=== PATIENT | female | born 1965 | race African-American/Black ===

== ENCOUNTER 2022-12-02 11:49 | Outpatient (REF) | payer MEDICAID, SELFPAY | END 2022-12-02 11:50 | disposition home or self-care (01) | LOC: HO.MAMMO 11:49 | PROVIDERS: Visit Provider Nurse Practitioner Family | DX: Z12.31 Encounter for screening mammogram for malignant neoplasm of breast (principal) | CPT/HCPCS: 77063; 77067 ==

== ENCOUNTER → 2022-12-02 12:15 | Outpatient (BNV) | payer MEDICAID, SELFPAY | PROVIDERS: Visit Provider Radiology Diagnostic Radiology | DX: Z12.31 Encounter for screening mammogram for malignant neoplasm of breast (principal) | CPT/HCPCS: 77063; 77067 ==

== ENCOUNTER 2024-01-25 18:00 | Outpatient (REF) | payer MEDICAID, SELFPAY ==
[2024-01-26 02:57] LABS: CT PCR NOT DETECTED (Not Detect.); NG PCR NOT DETECTED (Not Detect.)
[2024-01-26 11:10] LABS: Bacterial Vaginosis PCR NEGATIVE (Negative); Candida Group PCR DETECTED (Not Detect); Candida glab krusei PCR NOT DETECTED (Not Detect); Trichomonas vaginalis PCR NOT DETECTED (Not Detect)
== END 2024-01-25 18:01 | disposition home or self-care (01) ==
LOC: HO.HHCLNP 18:00
PROVIDERS: Visit Provider Emergency Medicine
DX: E11.69 Type 2 diabetes mellitus with other specified complication (principal); E66.9 Obesity, unspecified
CPT/HCPCS: 0352U; 87086; 87147; 87491; 87591

== ENCOUNTER 2024-04-19 15:45 | Outpatient (REF) | payer MEDICAID, SELFPAY ==
[2024-04-19 16:25] LABS: MANUAL DIFF FLAG NO
--- OUTSIDE RECORDS SUMMARY | 2024-04-19 16:28 | XMS_ITS | Encounter Summary ---
Author Organization [employer] Address [address] [facility] [address] [place] [address] Care Team Providers Care Assistant Professor Of Marine Biology Name Role Phone Amalia Pulido [facility] Primary Care Provider [phone] Reason for Visit * Reason Comments Pre-visit Planning Pre-visit planning - LVM Encounter Details Date Type Department Care Team ([facility] Contact Info) Description 04/06/2024 Patient Outreach [facility] MEDICINE [address] [place], [place] [id number] Amalia Pulido FNP [address] [place] [address] Pre-visit Planning (Pre-visit planning - LVM ) Social History Tobacco Use Types Packs/Day Years Used Date Smoking Tobacco: Former Cigarettes 1 20 0 09/24/2002 - 09/24/2022 Passive Smoke Exposure: Current Smokeless Tobacco: Never Comments:Quit smoking 3 Alcohol Use Standard Drinks/Week Comments Never 0 (1 standard drink = 0.6 oz pur e alcohol) Depression Answer Date Recorded Patient Health Questionnaire-9 Score 9 10/29/2022 Housing Stability Answer Date Recorded What is your housing situation today? I have yelitzaalda bruno 02/03/[address] you li ve. Do you have problems with any of the following? None of the above 02/03/2024 Food Insecurity Answer Date Recorded Within the past 12 months, y ou worried that your food would run out before you got money to buy more: Never True 02/03/2024 Within the past 12 months,th e food you bought just didn't last and you didn't have enough money to get more: Never True Transportation Answer Date Recorded In the past 12 months, has l ack of transportation kept you from medical appts, meetings, work or from getting things needed for daily living? No 02/03/2024 Utilities Answer Date Recorded In the past 12 months, has t he electric, gas, oil or water company threatened to shut off services in your home? No 02/03/2024 Depression Answer Date Recorded Patient Health Questionnaire-2 Score 4 10/29/2022 Internet Access Answer Date Recorded Internet Access Q1 Yes 02/03/2024 Internet Access Q2 Not on file 02/03/2024 Comments Unknown Sex and Gender Information Value Date Recorded Sex Assigned at Female 01/12/2022 10:17 AM EDT Legal Sex Female 10:17 AM EDT Gender Identity Female 01/12/2022 10:17 AM EDT Sexual Orientation Straight 01/12/2022 10 :17 AM EDT documented as of this encounter Progress Notes * Barbara Frazier - 04/06/2024 10:47 AM EST CEASAR Tiwari placed outbound call to patient to complete pre-visit planning. No answer at this time. Patient name and were not confirmed. CC left voicemail requesting return call. Direct contact information provided. documented in this encounter Plan of Treatment Not on file documented as of this encounter Visit Diagnoses Not on filedocumented in this encounter Additional Health Concerns Assessment Noted Time PHQ-9 Depression Total Score: 9 10/30/19 23 2:22 PM EDT documented as of this encounter Care Teams Assistant Professor Of Marine Biology Relationship Specialty Start Date End Date Amalia Pulido FNP [address] [place] [id number] PCP - General Family Medicine 01/25/24 documented as of this encounter
--- OUTSIDE RECORDS SUMMARY | 2024-04-19 16:28 | XMS_ITS | Encounter Summary ---
Author Organization [employer] Address [address] [place] [address] Care Team Providers Care Materials Engineering Technician Name Role Phone Amalia Pulido VETERINARY TOXICOLOGIST Primary Care Provider [phone] Encounter Details Date Type Department Care Team (Latest Contact Info) Description 04/19/2024 Travel Social History Tobacco Use Types Packs/Day Years [...] is your housing situation today? I have yelitza bruno 02/03/[address] you [...] AM EDT documented as of this encounter Plan of Treatment Not on file documented as of this encounter Visit Diagnoses Not on filedocumented in this encounter Additional Health Concerns Assessment Noted Time PHQ-9 Depression Total Score: 9 10/30/19 23 2:22 PM EDT documented as of this encounter Care Teams Materials Engineering Technician Relationship Specialty Start Date End Date Amalia Pulido FNP [address] [place] [id number] PCP - General Family Medicine 01/25/24 documented as of this encounter
--- OUTSIDE RECORDS SUMMARY | 2024-04-19 16:28 | XMS_ITS | Clinical Summary ---
Author Organization [employer] [facility] ity Address [address] [place] [address] Care Team Providers Care Agronomy Advisor Name Role Phone Unavailable Primary Care Provider Unavailabl e Social History Tobacco Use Types Packs/Day Years Used Date Smoking Tobacco: Never Assessed Sex and Gender Information Value Date Recorded Sex Assigned at Not on file Gender Identity Not on file Sexual Orientation Not on file Plan of Treatment Health Maintenance Due Date Last Done Comments Breast Cancer Screening 1965 DTaP,Tdap,and Td Vaccines (1 - Tdap) 02/13/1984 Hepatitis B Vaccines (1 of 3 - 19+ 3-dose series) 02/13/1984 Cervical Cancer Screening: P ap Smear 1986 Zoster Vaccines (1 of 2) 2015 COVID-19 Vaccine (1 - 2023-2 5 season) 2023 Influenza Vaccine (#1) 2023 RSV Immunization Patients 60 + Years Old (1 - 1-dose 75+ series) 02/13/2040 HIB Vaccines Aged Out No longer eligi ble based on patient's age to complete this topic HPV Vaccines Aged Out No longer eligi ble based on patient's age to complete this topic Hepatitis A Vaccines Aged Out No long er eligible based on patient's age to complete this topic IPV Vaccines Aged Out No longer eligi ble based on patient's age to complete this topic MMR Vaccines Aged Out No longer eligi ble based on patient's age to complete this topic Meningococcal ACWY Vaccine Aged Out N o longer eligible based on patient's age to complete this topic Pneumococcal Vaccine: Pediat rics (0 to 5 Years) and At-Risk Patients (6 to 64 Years) Aged Out No longer eligible b ased on patient's age to complete this topic RSV Immunization Patients Un beni 20 months Aged Out No longer eligible b ased on patient's age to complete this topic Varicella Vaccines Aged Out No longer eligible based on patient's age to complete this topic
--- OUTSIDE RECORDS SUMMARY | 2024-04-19 16:28 | XMS_ITS | Encounter Summary ---
Author Organization [employer] Address [address] [facility] [address] [place] [address] Care Team Providers Care Freight Car Repairer Name Role Phone Aziza Ramsey [facility] Primary Care Provider [phone] [facility] Primary Care Provider [phone] Amalia Pulido [facility] Primary Care Provider [phone] Reason for Visit * Reason Comments Med Refill Encounter Details Date Type Department Care Team ([facility] st Contact Info) Description 02/17/2023 Refill [facility] MEDICINE [address] [place], [place] [phone] Aziza Ramsey PROBATE CLERK [address] [place] [address] Primary osteoarthritis of both knees Social History Tobacco Use Types Packs/Day Years [...] is your housing situation today? I have housing today, but I am worried about losing housing in the future 12/29/[address] you li ve. Do you have problems with any of the following? None of the above 12/29/2022 Food Insecurity Answer Date Recorded Within the past 12 months, y ou worried that your food would run out before you got money to buy more: Never True 12/29/2022 Within the past 12 months,th e food you bought just didn't last and you didn't have enough money to get more: Never True Transportation Answer Date Recorded In the past 12 months, has l ack of transportation kept you from medical appts, meetings, work or from getting things needed for daily living? No 12/29/2022 Utilities Answer Date Recorded In the past 12 months, has t he electric, gas, oil or water company threatened to shut off services in your home? No 12/29/2022 Depression Answer Date Recorded Patient Health Questionnaire-2 Score 4 10/29/2022 Comments Unknown Sex and Gender Information Value Date Recorded Sex Assigned at Female 01/12/2022 10:17 AM EDT Legal Sex Female 10:17 AM EDT Gender Identity Female 01/12/2022 10:17 AM EDT Sexual Orientation Straight 01/12/2022 10 :17 AM EDT documented as of this encounter Plan of Treatment Not on file documented as of this encounter Visit Diagnoses Diagnosis Primary osteoarthritis of both knees documented in this encounter Additional Health Concerns Assessment Noted Time PHQ-9 Depression Total Score: 9 10/30/19 23 2:22 PM EDT documented as of this encounter Care Teams Freight Car Repairer Relationship Specialty Start Date End Date Aziza Ramsey FNP [address] [place] [address] PCP - General Family Medicine 09/09/22 [facility] [address] [place] [address] PCP - General Family Medicine 11/16/23 01/24/24 Amalia Pulido FNP [address] [place] [address] PCP - General Family Medicine 01/25/24 documented as of this encounter
--- OUTSIDE RECORDS SUMMARY | 2024-04-19 16:28 | XMS_ITS | Encounter Summary ---
Author Organization [employer] Address [address] [facility] [address] [place] [address] Care Team Providers Care Ammonia Box Operator Name Role Phone Amalia Pulido REMEDIATION TECHNICIAN Primary Care Provider [phone] Reason for Visit * Reason Onset Date Comments Chart Prep 04/13/2024 Encounter Details Date Type Department Care Team ([facility] st Contact Info) Description 04/13/2024 Telephone [facility] MEDICINE [address] [place] [address] Viki Smalls [place] Chart Prep Social History Tobacco Use Types Packs/Day Years [...] the past 12 months, has t he [employer], gas, oil or water [employer] threatened to shut off services in your [...] AM EDT documented as of this encounter Miscellaneous Notes * Telephone Encounter - Viki Smalls [place] - 04/13/2024 2:02 PM EST Chart Prep Labs: not done Images: done Vaccines due: Covid Due, Hep B Due, PCV20 Due, Flu Due, and Shingles in pharmacy Due Referrals: Pharmacy Screenings: Colonoscopy , Eye Exam, Foot Exam, HIV screening, and Urine protein, Hep C, Lung cancerscreening, Cervical cancer Overdue care gaps: A1C, Glucose, Sbirt, PHQ-9, and Oral Health documented in this encounter Plan of Treatment Not on file documented as of this encounter Visit Diagnoses Not on filedocumented in this encounter Additional Health Concerns Assessment Noted Time PHQ-9 Depression Total Score: 9 10/30/19 23 2:22 PM EDT documented as of this encounter Care Teams Ammonia Box Operator Relationship Specialty Start Date End Date Amalia Pulido FNP [address] [place] [id number] PCP - General Family Medicine 01/25/24 documented as of this encounter
--- OUTSIDE RECORDS SUMMARY | 2024-04-19 16:28 | XMS_ITS | Encounter Summary ---
Author Organization [employer] Address [address] [facility] [address] [place] [address] Care Team Providers Care Floating Labor Gang Supervisor Name Role Phone Aziza Ramsey ADULT EDUCATION TEACHER Primary Care Provider [phone] Odalis LinP Primary Care Provider [phone] Amalia Pulido [facility] Primary Care Provider [phone] Encounter Details Date Type Department Care Team (Late st Contact Info) Description 10/15/2022 Orders Only [facility] MEDICINE [address] [place] [address] Aziza Ramsey FNP [address] [place] [address] Social History Tobacco Use Types Packs/Day Years Used Date Smoking Tobacco: Some Days Cigarettes Passive Smoke Exposure: Current Smokeless Tobacco: Never Alcohol Use Standard Drinks/Week Comments Not Currently 0 (1 standard drink = 0.6 oz pur e alcohol) Comments Unknown Sex and Gender Information Value Date Recorded Sex Assigned at Female 01/12/2022 10:17 AM EDT Legal Sex Female 10:17 AM EDT Gender Identity Female 01/12/2022 10:17 AM EDT Sexual Orientation Straight 01/12/2022 10 :17 AM EDT documented as of this encounter Plan of Treatment Not on file documented as of this encounter Visit Diagnoses Not on filedocumented in this encounter Care Teams Floating Labor Gang Supervisor Relationship Specialty Start Date End Date Aziza Ramsey FNP [address] [place] [address] PCP - General Family Medicine 09/09/22 11/15/23 Odalis Lin FNP [address] [place] [address] PCP - General Family Medicine 11/16/23 01/24/24 Amalia Pulido FNP [address] [place] [address] PCP - General Family Medicine 01/25/24 documented as of this encounter
--- OUTSIDE RECORDS SUMMARY | 2024-04-19 16:28 | XMS_ITS | Clinical Summary ---
Author Organization [employer] Address [address] [facility] [address] [place] [address] Care Team Providers Care Asset Accountant Name Role Phone Amalia Pulido [facility] Primary Care Provider [phone] Allergies No known active allergies Medications albuterol (2.5 MG/3ML) 0.083% nebulizer solution Every 4-6 hours as needed for wheezing 75 mL 11 09/10/19 23 Active atorvastatin (Lipitor) 40 MG tablet Take 1 tablet (40 mg) by mouth every 30 (thirty) days. 90 tablet 1 09/10/19 23 Active fluticasone (Flovent HFA) 110 MCG/ACT inhaler INHALE 1 PUFF TWICE DAILY 36 g 09/10/19 23 Active Alcohol Swabs (B-D SINGLE USE SWABS REGULAR) pads USE DIRECTED TWICE DAILY 1 each 11 09/10/19 23 Active sertraline (Zoloft) 50 MG tablet Take 50 mg by mouth in the morning. 02/05/20 22 Active triamcinolone (Kenalog) 0.1 % creamIndicatio ns:Vesicular eczema Apply topically if needed in the morning and at bedtime (pain and swelling). 30 g 2 10/30/19 23 Active omeprazole (PriLOSEC) [address] capsule TAKE 1 CAPSULE BY MOUTH EVERY DAY BEFORE A MEAL NEEDED FOR REFLUX 90 capsule 1 08/02/19 24 Active Blood Pressure kit 1 each 2 times daily. 1 kit 01/25/20 24 025 Active glucose blood (FREESTYLE LITE) test strip 1 each by Other route every 12 (twelve) hours. 100 each 2 01/25/20 24 Active FreeStyle lancets 1 each by Other route 2 times daily. TEST BLOOD SUGAR TWICE A DAY 100 each 2 01/25/20 24 Active Alcohol Swabs (Alcohol Prep) pads 1 each 2 times daily. 100 each 01/25/20 24 Active albuterol 108 (90 Base) MCG/ACT inhalerIndicat ions:Mild persistent asthma, unspecified whether complicated INHALE 2 PUFFS EVERY 6 HOURS NEEDED FOR WHEEZING 18 g 1 02/29/20 24 Active Dulaglutide (Trulicity) 0.75 MG/0.5ML solution auto-injector Inject 0.75 mg under the skin 1 (one) time per week. 0.5 mL 1 04/19/19 25 Active glipiZIDE XL (Glucotrol XL) 5 MG 24 hr tablet Take 1 tablet (5 mg) by mouth Once per day. Do not crush, chew, or split. 30 tablet 11 04/19/19 25 026 Active insulin glargine (Lantus SoloStar) 100 UNIT/ML penIndications :Type 2 diabetes mellitus with hyperglycemia, with long-term current use of insulin ([facility]) Inject 16 Units under the skin Once daily. 5 mL 2 04/19/19 25 026 Active lisinopril 20 MG tabletIndicati ons:Hypertensi on associated with diabetes (CMS/HCC) (CMS/[facility]) Take 1 tablet (20 mg) by mouth Once daily. 90 tablet 04/19/19 25 Active pen needle 32G x 4 mm miscIndication s:Type 2 diabetes mellitus with hyperglycemia, with long-term current use of insulin ([facility]) Use as instructed 100 each 2 04/19/19 25 Active meloxicam (Mobic) 7.5 MG tabletIndicati ons:Arthralgia , unspecified joint 1 tab by mouth with food once or twice daily 60 tablet 04/19/19 25 Active lisinopril 10 MG tablet TAKE 1 TABLET(10 MG) BY MOUTH IN THE MORNING 90 tablet 1 05/28/19 24 025 Discontinued(Re order (will not trigger notification to Pharmacy)) naproxen (Naprosyn) 500 MG tablet TAKE 1 TABLET BY MOUTH TWICE DAILY WITH FOOD FOR MODERATE PAIN 60 tablet 10/18/19 24 025 Discontinued(Th erapy completed) naproxen (Naprosyn) 250 MG tablet Take 1 tablet (250 mg) by mouth if needed in the morning and at bedtime for mild pain. Prn pain and/or fever 30 tablet 01/25/20 24 025 Discontinued(Th erapy completed) insulin glargine (Lantus SoloStar) 100 UNIT/ML pen Inject 15 Units under the skin at bedtime. 3 mL 2 01/25/20 24 025 Discontinued(Re order (will not trigger notification to Pharmacy)) pen needle 32G x 4 mm misc Use as instructed 100 each 2 01/25/20 24 025 Discontinued(Re order (will not trigger notification to Pharmacy)) Active Problems Problem Noted Date Diagnosed Date Tobacco use 09/09/2022 Vesicular eczema 04/01/2022 Depressive disorder 10/20/2020 Insomnia 08/24/2018 Mild persistent asthma 06/03/2018 Carpal tunnel syndrome 06/03/2018 Impingement syndrome of left shoulder region Osteoarthritis of left acromioclavicular joint 0 06/01/2018 Hip pain 03/31/2018 Essential hypertension 03/31/2018 Mixed incontinence 10/21/2017 Primary osteoarthritis of both knees 06/19/2016 Onychomycosis of multiple to enails with type 2 diabetes mellitus ([facility]/HCC) 03/27/2016 Type 2 diabetes mellitus with obesity ([facility]) 03/27/2016 Encounters Date Type Department Care Team Description 04/19/2024 2:00 PM EST Office Visit [facility] [address] [place] [phone] Amalia Pulido FNP Well adult health check (Primary Dx); Type 2 diabetes mellitus with obesity ([facility]/HCC) ([facility]); Type 2 diabetes mellitus with hyperglycemia, with long-term current use of insulin ([facility]); Hypertension associated with diabetes ([facility]/HCC) ([facility]); Arthralgia, unspecified joint 04/19/2024 Travel 04/13/2024 Telephone [facility] [address] [place] [address] [phone] Viki Smalls MA Chart Prep 04/06/2024 Patient Outreach [facility] [address] [place] [phone] Amalia Pulido FNP Pre-visit Planning (Pre-visit planning - LVM ) 02/28/2024 Refill [facility] [address] [place] [phone] Nanette Serrano FNP Mild persistent asthma, unspecified whether complicated (Primary Dx) 02/25/[address] [address] Amalia Pulido FNP 02/16/[address] [address] Amalia Pulido FNP No Show 02/08/2024 10:00 AM EST Clinical Support [address] [address] Beatriz Brown, JHON Essential hypertension 02/03/2024 Patient Outreach [facility] [address] [place] [address] Amalia Pulido FNP Pre-visit Planning (SDOH negative, Tobacco screening negative. ) 01/31/[address] [address] Shania Aleman MA CHART PREP 01/29/[address] [address] Vannesa Rowell, JHON Results 01/28/2024 [facility] [address] [address] Franklin Casey MD Urinary frequency (Primary Dx) 01/25/2024 8:40 AM EST [facility] [address] [address] Franklin Casey MD Type 2 diabetes mellitus with obesity (CMS/HCC) (CMS/HCC) (Primary Dx); Essential hypertension; Urinary frequency; Vaginal itching 01/24/[address] [address] Odalis Lin FNP Nurse Triage from Last 3 Months Immunizations Name Administration Dates Next Due Pneumococcal Polysaccharide PPSV23 03/27/2016 Tdap 03/27/2016 Family History Medical History Relation Name Comments Heart disease Mother Heart disease Sister Relation Name Status Comments Mother Sister Social History Tobacco Use Types Packs/Day Years Used Date Smoking Tobacco: Former Cigarettes 1 20 0 09/24/2002 - 09/24/2022 Passive Smoke Exposure: Current Smokeless Tobacco: Never Tobacco Cessation:Counseling Given: Not Answered Comments:Quit smoking 09/24/22 Alcohol Use Standard Drinks/Week Comments Never 0 [...] Orientation Straight 01/12/2022 10 :17 AM EDT Last Filed Vital Signs Vital Sign Reading Time Taken Comments Blood Pressure 150/90 04/19/2024 2:17 PM EST Pulse 75 04/19/2024 2:17 PM EST Temperature 36.6 ??C (97.8 ??F) 04/19/2024 2:17 PM ES T Respiratory Rate 18 04/19/2024 2:17 PM EST Oxygen Saturation 98% 04/19/2024 2:17 PM EST Inhaled Oxygen Concentration - - Weight 120 kg (265 lb 9.6 oz) 04/19/2024 2:17 PM EST Height 167.6 cm (5' 6 ) 04/19/2024 2:17 PM EST Body Mass Index 42.87 04/19/2024 2:17 PM EST Plan of Treatment Health Maintenance Due Date Last Done Comments CT Colonography 1965 Colonoscopy 1965 Colorectal Cancer Screening 1965 FIT DNA/Cologuard 1965 FIT 1965 FOBT 1965 HIV Screening 1965 Sigmoidoscopy 1965 Eye Exam 1975 Hepatitis C Screening 1983 Hepatitis B Vaccines (1 of 3 - 19+ 3-dose series) 02/13/1984 Lung Cancer Screening 2015 Zoster Vaccines (1 of 2) 2015 Pneumococcal Vaccine: 50+ Years (2 of 2 - PCV) 03/27/2017 03/27/2016 Diabetes: Urine Protein Screening 10/23/2021 10/23/2020 Lipid Panel 10/23/2021 10/23/2020 Depression Monitoring (PHQ-9) 05/01/2023, 10/29/2022 Depression Screening 10/30/2023 10/29/2022, 10/29/2022 Diabetes: Foot Exam 10/30/2023 10/29/2022, 10/29/2022 COVID-19 Vaccine ( - 2023-2 5 season) 2023 Influenza Vaccine (#1) 2023 Diabetes: Hemoglobin A1C 07/17/2024 025, 01/25/2024, 10/29/2022 Cervical Cancer Screening 09/27/2024 HPV/Cotest 09/27/2024 09/28/2019 Pap Smear 09/27/2024 09/28/2019 Mammogram 12/02/2024 12/02/2022, 06/06/2018, 04/05/2017 SDOH Screening 02/02/2025 02/03/2024 Alcohol/Substance Use Screening 04/19/2025 04/19/2024 Tobacco Screening 04/19/2025 04/19/2024 DTaP/Tdap/Td Vaccines (2 - T d or Tdap) 03/27/2026 03/27/2016 RSV Patients and Patients Aged 60 years or older (1 - 1-dose 75+ series) 02/13/2040 HIB [...] patient's age to complete this topic Meningococcal Vaccine Aged Out No matteo chema eligible based on patient's age to complete this topic RSV under 20 months Aged Out No longe r eligible based on patient's age to complete this topic Rotavirus Vaccines Aged Out No longer eligible based on patient's age to complete this topic Procedures Procedure Name Priority Date/Time Associated Diagnosis Comments POCT URINALYSIS DIPSTICK Routine 04/19/2024 3:52 PM EST Well adult health check POCT GLUCOSE Routine 04/19/2024 3:52 PM EST Well adult health check POCT GLYCATED HEMOGLOBIN, TOTAL Routine 04/19/2024 3:49 PM EST Well adult health check CHLAMYDIA/N. GONORRHOEAE RNA, TMA, UROGENITAL Routine 01/25/2024 9:32 AM EST Type 2 diabetes mellitus with obesity (CMS/HCC) ([facility]) BACTERIAL VAGINOSIS PANEL Routine 01/25/2024 9:32 AM EST Type 2 diabetes mellitus with obesity (CMS/HCC) ([facility]) CULTURE, URINE, ROUTINE Routine 01/25/2024 9:32 AM EST Type 2 diabetes mellitus with obesity (CMS/HCC) (CMS/[facility]) POCT URINALYSIS DIPSTICK Routine 01/25/2024 9:31 AM EST Type 2 diabetes mellitus with obesity (CMS/HCC) (CMS/[facility]) POCT GLYCATED HEMOGLOBIN, TOTAL Routine 01/25/2024 9:31 AM EST Type 2 diabetes mellitus with obesity (CMS/HCC) ([facility]) POCT GLUCOSE Routine 01/25/2024 9:31 AM EST Type 2 diabetes mellitus with obesity (CMS/HCC) ([facility]) BI MAMMOGRAM SCREENING TOMOSYNTHESIS BILATERAL Routine 12/02/2022 12:10 PM EDT ALBUMIN, RANDOM URINE W/CREATININE Routine 10/23/2020 12:01 PM EDT LIPID PANEL, STANDARD Routine 10/23/2020 11:56 AM EDT HPV MRNA E6/E7 Routine 09/28/2019 9:44 AM EDT THINPREP PAP Routine 09/28/2019 9:44 AM EDT from Last 3 Months or Most Recently Relevant to Health Maintenance Results * (ABNORMAL) POCT Glucose (04/19/2024 3:52 PM EST) Only the most recent of2 resultswithin the time period is included. Glucose Blood, POC 322(A) 60 - 200 mg/dL QC Media Lot # [id number] Lot# Expiration Date 62, Blood Capillary blood specimen / Unknown 04/19/2024 3:52 PM EST Result [facility] POINT OF CARE TEST ENTER/EDIT ORDERABLES Final Result * POCT Urinalysis (04/19/2024 3:52 PM EST) Only the most recent of2 resultswithin the time period is included. Color, UA Yellow Clarity, UA Clear Glucose, UA 4+ >500 Bilirubin, UA Negative Ketones, UA Negative Comment:40 Spec Grav, UA 1.025 Blood, UA Negative Negative, None Detected pH, UA 5.5 Protein, UA Negative Urobilinogen, UA 0.2 Leukocytes, UA Trace Negative, Rare, Trace Comment:small Nitrite, UA Negative Negative, None Detected Appearance, UA clear QC Media Lot # [id number] Lot# Expiration Date Urine 04/19/2024 3:52 PM EST Amalia RushFileso ASSET MANAGEMENT ANALYST POINT OF CARE TEST ENTER/EDIT ORDERABLES Final Result * (ABNORMAL) POCT HGB A1C (04/19/2024 3:49 PM EST) Only the most recent of2 resultswithin the time period is included. Hemoglobin A1C 11.8(A) 4.0 - 6.0 % QC Media Lot # [id number] Lot# Expiration Date Blood 04/19/2024 3:49 PM EST VidBido ASSET MANAGEMENT ANALYST POINT OF CARE TEST ENTER/EDIT ORDERABLES Final Result * (ABNORMAL) Bacterial Vaginosis Panel (01/25/2024 9:32 AM EST) TRICHOMONAS VAGINALIS DETECTION BY PCR NOT DETECTED Not Detect [facility] BACTERIAL VAGINOSIS DETECTION BY PCR NEGATIVE Negative [facility] Comment:The BV organism targ ets of the Xpert Xpress MVP test can becommensal in women; Xpert Xpress MVP positive results forbacterial vaginosis should be considered in conjunction withother clinical and patient information to determine thedisease status. Organisms that are not detected by the XpertXpress MVP test have also been reported to be associatedwith BV and aerobic vaginitis.The Xpert Xpress MVP test performance has not been evaluatedin patients under the age of 14. AILYN GROUP DETECTION BY PCR DETECTED(A) Not Detect [facility] Ailyn glab krusei PCR NOT DETECTED Not Detect [facility] Swab Vaginal structure / Unknown 01/25/2024 9:32 AM EST 01/25/2024 6:02 PM EST Franklin Casey MD LAB MICROBIOLOGY - GENERAL ORDER STAR Final Result [facility] [address] [place] [address] [phone] * Chlamydia/N. Gonorrhoeae RNA, TMA, Urogenitial (01/25/2024 9:32 AM EST) CT PCR NOT DETECTED Not Detect. [facility] Comment:A not detected test result does not exclude the possibilityof infection because test results can be affected byimproper specimen collection, concurrent antibiotic therapy,or the number of organisms in the specimen which may bebelow the sensitivity of the test. As with many diagnostictests, results from the Xpert CT/NG assay should beinterpreted in conjunction with other laboratory andclinical data available to the clinician.Xpert CT/NG performance has not been evaluated in patientsless than 14 years of age. The assay should not be used forthe evaluationof suspected sexual abuse or for other medico-legalindications. Additional testing is recommended in anycircumstance when false positive or false negative resultscould lead to adverse medical, social or psychologicalconsequences. NG PCR NOT DETECTED Not Detect. [facility] Comment:A not detected test result does not exclude the possibilityof infection because test results can be affected byimproper specimen collection, concurrent antibiotic therapy,or the number of organisms in the specimen which may bebelow the sensitivity of the test. As with many diagnostictests, results from the Xpert CT/NG assay should beinterpreted in conjunction with other laboratory andclinical data available to the clinician.Xpert CT/NG performance has not been evaluated in patientsless than 14 years of age. The assay should not be used forthe evaluationof suspected sexual abuse or for other medico-legalindications. Additional testing is recommended in anycircumstance when false positive or false negative resultscould lead to adverse medical, social or psychologicalconsequences. Swab (Vaginal Swab) 01/25/2024 9:32 AM EST 01/25/2024 6:02 PM EST Narrative [facility] - 01/26/2024 2:57 AM EST Vaginal Franklin Casey MD LAB MICROBIOLOGY - GENERAL ORDER STAR Final Result Performing Organization Address [facility] de Phone Number [facility] [address] [place] [address] [phone] * Culture, Urine, Routine (01/25/2024 9:32 AM EST) Urine Urine specimen obtained by clean catch procedure / Unknown 01/25/2024 9:32 AM EST 01/25/2024 6:02 PM EST Comment:UACC Narrative [facility] - 01/27/2024 11:27 AM EST Urine Culture Report Result Urine Culture 10,000 to 50,000 cfu/ml Urine Culture Mixed bacterial álvaro characteristic of Urine Culture urogenital contamination. Strep agalactiae (Grp B) Quant < 10,000 cfu/mL Susc N/A Susceptibility not routinely performed on this isolate. Specimen Source: Urine clean catch Franklin Casey MD LAB MICROBIOLOGY - GENERAL ORDER STAR Final Result Performing Organization Address [facility] de Phone Number [facility] [address] [place] [address] [phone] * BI Mammogram Screening Tomosynthesis Bilateral (12/02/2022 12:10 PM EDT) Anatomical Region Laterality Modality Breast Bilateral Mammography 12/02/2022 12:1 0 PM EDT Narrative 12/22/2022 1:13 PM EDT ? [facility] [place] ? [address] ?[place] [address] ? Mammography Report ? Signed ? Patient: Shay,Ami I ?MR#: [id number] ?? 60 ? : 1965 ?Acct:[id number] ? Age/Sex: 57 / F ?ADM Date: /20/23 ? Loc: HO.MAMMO ? Attending Dr: Aziza Ramsey BROKE BEATER ? Ordering Physician: Aziza Ramsey BROKE BEATER ?Results: 1Negativ ?? e ? Date of Service: 12/02/22 ?Follow Up: 1 Year From Orig ?? inal Mammogram ? Procedure(s): MM tomosynthesis screening BI ?? Accession Number(s): [id number] ? cc: Aziza Ramsey BROKE BEATER ? EXAMINATION: ?? MM SCREENING DIGITAL BREAST TOMOSYNTHESIS, BILATERAL ? CLINICAL INFORMATION: ? Screening. Asymptomatic. ? COMPARISON: ?? Mammography: This study is compared with prior exams dating back to ?? 2017. ? TECHNIQUE: ?? Digital breast tomosynthesis is performed in both the craniocaudal and ?? mediolateral oblique views along with computer-aided detection (CAD). ?? Synthesized 2D images are generated from the tomosynthesis. ? FINDINGS: ?? There are scattered areas of fibroglandular density (ACR BI-RADS breast ?? composition Category b). ? There are no significant masses, abnormal calcifications, or other ?? abnormalities. ? MM/MM tomosynthesis screening BI ?? IMPRESSION: ?? No mammographic evidence of malignancy. ? ASSESSMENT: ? BI-RADS BI-RADS 1 - Negative ? RECOMMENDATION: ?? Routine annual mammography screening. ? 1 year F/U ? This examination should not preclude the clinical evaluation of a ?? suspicious palpable abnormality. ? This patient's information was entered into a reminder system with a ?? target due date for their next mammogram. ? Dictated By: ?Tatum Mehta MD ? Signed By: ?<Electronically signed by Tatum Mehta MD in OV> ? 10/10/23 1309 ? DD/DT: 12/02/ 1210 ? TD/TT: ? Systems Trainer: ? Procedure Note Donotuseinterpreter, Image - 12/22/2022 [facility] [address] [place], [place] [address] Mammography Report Signed Patient: Ami Day IMR#: [id number] 60 : 1965Acct:[id number] Age/Sex: 57 / FADM Date: 12/02/22 Loc: HO.MAMMO Attending Dr: Aziza Ramsey BROKE BEATER Ordering Physician: Aziza Ramsey NPResults: 1Negativ e Date of Service: 12/02/22Follow Up: 1 Year From Orig inal Mammogram Procedure(s): MM tomosynthesis screening BI Accession Number(s): [id number] cc: Aziza Ramsey NP EXAMINATION: MM SCREENING DIGITAL BREAST TOMOSYNTHESIS, BILATERAL CLINICAL INFORMATION: Screening. Asymptomatic. COMPARISON: Mammography: This study is compared with prior exams dating back to 2018. TECHNIQUE: Digital breast tomosynthesis is performed in both the craniocaudal and mediolateral oblique views along with computer-aided detection (CAD). Synthesized 2D images are generated from the tomosynthesis. FINDINGS: There are scattered areas of fibroglandular density (ACR BI-RADS breast composition Category b). There are no significant masses, abnormal calcifications, or other abnormalities. MM/MM tomosynthesis screening BI IMPRESSION: No mammographic evidence of malignancy. ASSESSMENT: BI-RADS BI-RADS 1 - Negative RECOMMENDATION: Routine annual mammography screening. 1 year F/U This examination should not preclude the clinical evaluation of a suspicious palpable abnormality. This patient's information was entered into a reminder system with a target due date for their next mammogram. Dictated By: Tatum Mehta MD Signed By: <Electronically signed by Tatum Mehta MD in OV> 12/22/22 1309 DD/ 1210 TD/TT: Systems Trainer: Aziza Ramsey ASSET MANAGEMENT ANALYST IMG BI PROCEDURES Final Result * ALBUMIN, RANDOM URINE W/CREATININE (10/23/2020 12:01 PM EDT) Microalbumin Urine 0.3 See Note: mg/dL [facility] Comment: Reference Range: ?? Reference Range Not established Microalb/Creat Ratio 3 <30 mcg/mg creat [facility] Comment: ?? The ADA defines abnormalities in albumin excretion as follows: ?? Category ? Result (mcg/mg creatinine) ?? Normal ?<30 Microalbuminuria ? 30-299 ?? Clinical albuminuria ?? > OR = 300 ?? The ADA recommends that at least two of three specimens collected within a 3-6 month period be abnormal before considering a patient to be within a diagnostic category. Creatinine, Urine 117 20 - 275 mg/dL [facility] 10/23/2020 12:0 1 PM EDT us Alma De La Cruz BROKE BEATER LAB URINE ORDERABLES Final Resu lt [facility] [address] * (ABNORMAL) LIPID PANEL, STANDARD (10/23/2020 11:56 AM EDT) Pathologist [facility] Chol/HDLC Ratio 3.4 <5.0 (calc) [facility] Cholesterol, Total 143 <200 mg/dL [facility] HDL Cholesterol 42(L) > OR = 50 mg/dL [facility] LDL Cholesterol 82 mg/dL (calc) [facility] Comment: Reference range: <100 ?? Desirable range <100 mg/dL for primary prevention; ?? <70 mg/dL for patients with CHD or diabetic patients ?? with > or = 2 CHD risk factors. ?? LDL-C is now calculated using the [place] ?? calculation, which is a validated novel method providing ?? better accuracy than the Friedewald equation in the ?? estimation of LDL-C. ?? Michael DOWNING et al. DENICE. 2013;310(19): 6363-1712 ?? (http://education.foodjunky/faq/RRY968) Non-HDL Cholesterol 101 <130 mg/dL (calc) [facility] Comment: For patients with diabetes plus 1 major ASCVD risk ?? factor, treating to a non-HDL-C goal of <100 mg/dL ?? (LDL-C of <70 mg/dL) is considered a therapeutic ?? option. Triglycerides 92 <150 mg/dL [facility] 10/23/2020 11:5 6 AM EDT Alma De La Cruz BROKE BEATER LAB BLOOD ORDERABLES Final Resu lt [facility] [address] [place] [address], * THINPREP PAP (09/28/2019 9:44 AM EDT) Clinical Information: SEE COMMENT [facility] Comment:None given COMMENT SEE COMMENT [facility] Comment: EXPLANATORY NOTE: ? The Pap is a screening test for cervical cancer. It is ?? not a diagnostic test and is subject to false negative ?? and false positive results. It is most reliable when a ?? satisfactory sample, regularly obtained, is submitted ?? with relevant clinical findings and history, and when ?? the Pap result is evaluated along with historic and ?? current clinical information. ?? Corporate Concierge: SEE COMMENT [facility] Comment: YP, CT(ASCP) CT screening location: [address] ??[address] Interpretation/Resu lt: SEE COMMENT [facility] Comment:Negative for intraep ithelial lesion or malignancy. LMP: SEE COMMENT [facility] Comment:NONE GIVEN Prev. BX: NONE GIVEN [facility] Prev. PAP: SEE COMMENT [facility] Comment:NONE GIVEN Review Corporate Concierge: SEE COMMENT [facility] Comment: [place], CT(ASCP) CT screening location: [address] ??[address] SOURCE: SEE COMMENT [facility] Comment:None given Statement Of Adequacy: SEE COMMENT [facility] Comment: Satisfactory for evaluation. Endocervical/transformation zone component present. Age and/or menstrual status not provided 09/28/2019 9:44 AM EDT Kaye Larson [facility] PATHOLOGY ORDERABLES Final Result Performing Organization Address [facility] de Phone Number [facility] [address] * HPV mRNA E6/E7 (09/28/2019 9:44 AM EDT) HPV nRNA E6/E7 Not Detected Not Detected [facility] Comment: This test was performed using the APTIMA HPV Assay ([employer] ?? This assay detects E6/E7 viral messenger RNA (mRNA) from 14 high-risk HPV types (16,18,31,33,35,39,45,51,52,56,58,59,66,68). ?? The analytical performance characteristics of this assay have been determined by [facility]. The modifications have not been cleared or approved by the FDA. This assay has been validated pursuant to the CLIA regulations and is used for clinical purposes. 09/28/2019 9:44 AM EDT Kaye Larson [facility] BLOOD ORDERABLES Phyllis l Result Performing Organization Address [facility] de Phone Number [facility] [address] from Last 3 Months or Most Recently Relevant to Health Maintenance Insurance Care Teams Asset Accountant Relationship Specialty Start Date End Date Amalia Pulido FNP [address] [place] [id number] PCP - General Family Medicine 01/25/24
--- OUTSIDE RECORDS SUMMARY | 2024-04-19 16:28 | XMS_ITS | Clinical Summary ---
Author Organization [facility] Address [address] [place] [address] Care Team Providers Care Lead Esthetician Name Role Phone Ishmael Payton NP Primary Care Provider [phone] Source Comments PLEASE NOTE, if this patient is a minor, it may be UNLAWFUL to discuss sensitive information that is contained in these records (such as FAMILY PLANNING, MENTAL HEALTH or SUBSTANCE ABUSE) with the minor patient's parent or other person without the patient's specific authorization.[facility] Allergies Active Allergy Reactions Criticality Noted Date Comments Ibuprofen 09/13/2015 Medications albuterol sulfate hfa 90 mcg/actuation inhalerIndication s:Mild intermittent asthma without complication Inhale 2 Puffs into the lungs every 4 (four) hours as needed for shortness of breath or wheezing. 18 g 0 6 Active fluticasone (FLOVENT HFA) 110 mcg/actuation inhalerIndication s:Mild intermittent asthma without complication Inhale 2 Puffs into the lungs 2 (two) times daily. 1 Inhaler 2 6 Active hydrochlorothiazi de (HYDRODIURIL) 25 mg tabletIndications :Essential hypertension Take 1 Tab by mouth once daily. 30 Tab 3 6 Active triamcinolone (KENALOG) 0.5 % ointmentIndicatio ns:Eczema, unspecified type Apply topically 2 (two) times daily. 15 g 2 6 Active traZODone (DESYREL) 50 mg tabletIndications :Primary insomnia Take 1 Tab by mouth nightly at bedtime. 30 Tab 0 6 Active metFORMIN (GLUCOPHAGE) 1,000 mg tabletIndications :Type 2 diabetes mellitus without complication, without long-term current use of insulin (HCC-CMS) Take 1 Tab by mouth 2 (two) times daily with a meal. 60 Tab 3 6 Active Active Problems Problem Noted Date Diagnosed Date Osteomyelitis of left foot ([facility]) 04/10/2016 Overview (04/10/2016): Left second toe cellulitis with distal phalanx osteomyelitis with radiographic correlation Diabetes mellitus ([facility]) 04/10/2016 COPD (chronic obstructive pulmonary disease) ([facility]) 04/10/2016 Anxiety and depression 09/13/2015 Mild intermittent asthma 09/13/2015 Essential hypertension 09/13/2015 Morbid obesity ([facility]) 09/13/2015 Primary insomnia 09/13/2015 Resolved Problems Problem Noted Date Diagnosed Date Resolved Date Non morbid obesity 09/13/2015 6 Family History Medical History Relation Name Comments Heart Problems Father Diabetes Mother Heart Problems Mother Relation Name Status Comments Father Mother Social History Tobacco Use Types Packs/Day Years Used Date Smoking Tobacco: Some Days Alcohol Use Standard Drinks/Week Comments No 0 (1 standard drink = 0.6 oz pur e alcohol) Social Connections Answer Date Recorded Connectedness 0 12/02/2023 Financial Resource Strain Answer Date R ecorded Financial Resource Strain 0 2020 Stress Answer Date Recorded Stress 0 03/05/2021 Physical Activity Answer Date Recorded Physical Activity 0 03/05/2021 Food Insecurity Answer Date Recorded Food 0 12/09/2023 Transportation Needs Answer Date Record ed Transportation 0 03/05/2021 Housing Stability Answer Date Recorded Housing 0 03/05/2021 Safety and Environment Answer Date Jermaine rded Safety 0 03/05/2021 Utilities Answer Date Recorded Utilities 0 03/05/2021 Employment Answer Date Recorded Stress 0 12/02/2023 Comments No Sex and Gender Information Value Date Recorded Sex Assigned at Not on file Legal Sex Female 10:25 AM PDT Gender Identity Not on file Sexual Orientation Not on file Occupation Industry Job Start Date Job End Date Not on file Not on file Not on file Not on file Last Filed Vital Signs Vital Sign Reading Time Taken Comments Blood Pressure 120/70 09/13/2015 1:14 PM EDT Pulse 80 09/13/2015 1:14 PM EDT Temperature 36.3 ??C (97.4 ??F) 09/13/2015 1:14 PM ED T Respiratory Rate 16 09/13/2015 1:14 PM EDT Oxygen Saturation - - Inhaled Oxygen Concentration - - Weight 124.3 kg (274 lb) 09/13/2015 1:14 PM EDT Height 165.1 cm (5' 5 ) 09/13/2015 1:14 PM EDT Body Mass Index 45.6 09/13/2015 1:14 PM EDT Plan of Treatment Health Maintenance Due Date Last Done Comments Dental Examination 1965 Diabetes Foot Exam 1965 Diabetes Microalbumin (w/Creatinine) 1965 HPV Screening 1965 Pap + HPV 1965 Tobacco Cessation Counseling (#1) 1965 Tobacco Screening 1965 Retinopathy Screening 1978 HIV Screening 02/13/1980 Annual Preventive Care Visit 1983 Imm-Hepatitis B (1 of 3 - 19+ 3-dose series) 4 Cervical Cancer Screening [address] Colonography 2010 Colonoscopy 2010 Colorectal Cancer Screening 2010 FIT/gFOBT 2010 Fecal DNA 2010 Flexible Sigmoidoscopy 2010 Imm-Zoster, Recombinant (1 of 2) 2015 Depression Monitoring 12/14/2015 09/13/2015 Diabetes HbA1c 03/29/2016 09/27/2015 Lipid Screening 09/26/2016 09/27/2015 Serum Creatinine 09/26/2016 09/27/2015 Imm-Pneumococcal (2 of 2 - PCV) 03/27/2017 7 Breast Cancer Screening (Mammogram) 07/16/201707/16 [id number] ( season) 2023 Imm-Influenza (#1) 2023 Alcohol and Drug Screen 03/15/2024 Imm-DTaP/Tdap/Td (2 - Td or Tdap) 03/27/2026 017 Hepatitis C Screening Completed 09/27/2015 Cervical Ablation/Cold-Knife Conization Discontinued Cervical Cryotherapy Discontinued Colposcopy Discontinued Endometrial Biopsy Discontinued Excision/Leep Discontinued HPV Genotyping Discontinued Vaginal Pap Discontinued Vulvoscopy Discontinued Procedures Procedure Name Priority Date/Time Associated Diagnosis Comments COMPREHENSIVE METABOLIC PANEL Routine 09/27/2015 9:15 AM EDT Routine general medical examination at a health care facility HEPATITIS A,B,C PANEL Routine 09/27/2015 9:15 AM EDT Routine general medical examination at a health care facility LIPID PANEL Routine 09/27/2015 9:15 AM EDT Routine general medical examination at a health care facility HEMOGLOBIN GLYCOSYLATED A1C Routine 09/27/2015 9:15 AM EDT Routine general medical examination at a health care facility from Last 3 Months or Most Recently Relevant to Health Maintenance Results * (ABNORMAL) HEPATITIS A,B,C PANEL (09/27/2015 9:15 AM EDT) HEPATITIS B SURFACE ANTIBODY NEGATIVE NEGATIVE [facility] HEPATITIS B SURFACE ANTIGEN NEGATIVE NEGATIVE [facility] HEPATITIS C VIRUS DIAGNOSTIC NEGATIVE NEGATIVE [facility] HEPATITIS A ANTIBODY TOTAL POSITIVE(A) NEGATIVE [facility] HEPATITIS B CORE ANTIBODY NEGATIVE NEGATIVE [facility] Blood specimen (specimen) Blood / Unknown 09/27/2015 9:15 AM EDT 09/27/2015 10:[address] [facility] - 09/27/2015 2:19 PM EDT [email or web address] [address] [place] [address] PT ID [id number] ORD# [id number] Charissemelina Wade [employer] [facility] - BLOOD DRAW Edited Resu lt - Final [facility] [address] [place] [address], * (ABNORMAL) HEMOGLOBIN, GLYCOSYLATED (A1C) (09/27/2015 9:15 AM EDT) GLYCATED HEMOGLOBIN A1C 6.5(H) <6.5 % [facility] ESTIMATED AVERAGE GLUCOSE 140 mg/dL [facility] Blood specimen (specimen) Blood / Unknown 09/27/2015 9:15 AM EDT 09/27/2015 10:33 AM EDT [facility] - 09/27/2015 1:38 PM EDT [email or web address] [address] [place] [address] PT ID [id number] ORD# [id number] Charisse Whitejordaninna [employer] [facility] - BLOOD DRAW Final Resul t Performing Organization Address City/[facility]/ZIP Co de Phone Number [facility] [address] [place] [address], [place] [phone] * (ABNORMAL) LIPID PANEL (09/27/2015 9:15 AM EDT) CHOLESTEROL 139 0 - 200 mg/dL [facility] TRIGLYCERIDES 99 0 - 150 mg/dL [facility] HDL CHOLESTEROL 34(L) >40 mg/dL [facility] LDL CALCULATED 86 0 - 100 mg/dL [facility] TC-HDLC RATIO 4.1 0 - 4.4 mg/dL [facility] Blood specimen (specimen) Blood / Unknown 09/27/2015 9:15 AM EDT 09/27/2015 10:33 AM EDT [facility] - 09/27/2015 1:19 PM EDT [email or web address] [address] [place] [id number] PT ID [id number] ORD# [id number] Charisse Whitegiselle [facility] - BLOOD DRAW Edited Resu lt - Final Performing Organization Address City/[facility]/ZIP Co de Phone Number [facility] [address] [place] [address], [place] [phone] * (ABNORMAL) COMPRE METAB PANEL (09/27/2015 9:15 AM EDT) GLUCOSE 100 70 - 100 mg/dL [facility] Comment:Reference range appl icable to fasting specimens only BUN 11 5 - 25 mg/dL [facility] CREAT 0.66 0.5 - 1.1 mg/dL [facility] GLOMERULAR FILTRATION RATE > 60 [facility] Comment: If patient is -[place], multiply result by 1.21 Chronic Kidney Disease: < 60 ml/min/1.73 square meters Kidney Failure: < 15 ml/min/1.73 square meters SODIUM 136 133 - 145 mmol/L [facility] Comment:Note new units effective 08/27/15 POTASSIUM 4.1 3.5 - 5.5 mmol/L [facility] Comment:Note new units effective 08/27/15 CHLORIDE 103 96 - 110 mmol/L [facility] Comment:Note new units effective 08/27/15 CO2 29 21 - 32 mmol/L [facility] Comment:Note new units effective 08/27/15 ANION GAP 4 3 - 11 [facility] CALCIUM 9.2 8.5 - 10.5 mg/dL [facility] TOTAL PROTEIN 7.0 6.0 - 8.0 G/dL [facility] ALBUMIN 3.3 3.2 - 5.0 G/dL [facility] BILI, TOTAL 0.5 0.0 - 1.4 mg/dL [facility] SGOT 13 10 - 42 U/L [facility] SGPT 27 10 - 60 U/L [facility] ALK PHOS 145(H) 42 - 121 U/L [facility] Blood specimen (specimen) Blood / Unknown 09/27/2015 9:15 AM EDT 09/27/2015 10:33 AM EDT Narrative [facility] - 09/27/2015 1:19 PM EDT [email or web address] [address] [place] [address] PT ID [id number] ORD# [id number] Charisse Wade [employer] [facility] - BLOOD DRAW Edited Resu lt - Final [facility] [address] [place] [address], from Last 3 Months or Most Recently Relevant to Health Maintenance Insurance [facility] [employer] Care Teams Lead Esthetician Relationship Specialty Start Date End Date Ishmael Payton NP [address] [place] [phone] PCP - General 01/20/18
--- OUTSIDE RECORDS SUMMARY | 2024-04-19 16:28 | XMS_ITS | Encounter Summary ---
Author Organization [employer] Address [address] [facility] [address] [place] [address] Care Team Providers Care Deck Worker Name Role Phone Amalia Pulido [facility] Primary Care Provider [phone] Encounter Details Date Type Department Care Team (Late st Contact Info) Description 04/19/2024 2:00 PM EST Office Visit [facility] [address] [place], [place] [phone] Amalia Pulido FNP [address] [place], [place] [phone] Well adult health check (Primary Dx); Type 2 diabetes mellitus with obesity (CMS/HCC) (CMS/HCC); Type 2 diabetes mellitus with hyperglycemia, with long-term current use of insulin (CMS/HCC); Hypertension associated with diabetes (CMS/HCC) (CMS/HCC); Arthralgia, unspecified joint Social History Tobacco Use Types Packs/Day Years [...] AM EDT documented as of this encounter Last Filed Vital Signs Vital Sign Reading [...] Mass Index 42.87 04/19/2024 2:17 PM EST documented in this encounter Plan of Treatment Scheduled Orders Name Type Priority Associated Diagnoses Orde r Schedule Lipid Panel, Standard Lab Routine Well adult health check Expected: 04/19/2024 (Approximate), Expires: 04/18/2025 Basic Metabolic Panel Lab Routine Well adult health check Expected: 04/19/2024 (Approximate), Expires: 04/18/2025 CBC auto differential Lab Routine Well adult health check Expected: 04/19/2024 (Approximate), Expires: 04/18/2025 Hepatitis C Antibody with Reflex to HCV, RNA, Quantitative, Real-Time PCR Lab Routine Well adult health check Expected: 04/19/2024 (Approximate), Expires: 04/18/2025 Chlamydia/N. Gonorrhoeae RNA, TMA, Urogenitial Microbiology Routine Well adult health check Ordered: 04/19/2024 HIV-1/2 Antigen and Antibodies, Fourth Generation, with Reflexes Lab Routine Well adult health check Expected: 04/19/2024 (Approximate), Expires: 04/18/2025 Albumin, Random Urine W/Creatinine Lab Routine Well adult health check Expected: 04/19/2024 (Approximate), Expires: 04/18/2025 Bacterial Vaginosis Panel Microbiology Routine Well adult health check Ordered: 04/19/2024 Culture, Urine, Routine Microbiology Routine Type 2 diabetes mellitus with obesity (CMS/HCC) ([facility]/HCC) Expected: 04/19/2024 (Approximate), Expires: 04/19/2025 documented as of this encounter Procedures Procedure Name Priority Date/Time Associated Diagnosis Comments POCT GLUCOSE Routine 04/19/2024 3:52 PM EST Well adult health check POCT URINALYSIS DIPSTICK Routine 04/19/2024 3:52 PM EST Well adult health check POCT GLYCATED HEMOGLOBIN, TOTAL Routine 04/19/2024 3:49 PM EST Well adult health check documented in this encounter Results * POCT Urinalysis (04/19/2024 3:52 PM EST) Color, UA Yellow Clarity, UA Clear Glucose, [...] Date Urine 04/19/2024 3:52 PM EST Amalia REEDP POINT OF CARE TEST ENTER/EDIT ORDERABLES Final Result * (ABNORMAL) POCT Glucose (04/19/2024 3:52 PM EST) Pathologist [facility] Glucose Blood, POC 322(A) 60 - 200 mg/dL [employer] Lot # [id number] Lot# Expiration Date [id number] Blood Capillary blood specimen / Unknown 04/19/2024 3:52 PM EST Result [facility] POINT OF CARE TEST ENTER/EDIT ORDERABLES Final Result * (ABNORMAL) POCT HGB A1C (04/19/2024 3:49 PM EST) Pathologist [facility] Hemoglobin A1C 11.8(A) 4.0 - 6.0 % [employer] Lot # [id number] Lot# Expiration Date , Blood 04/19/2024 3:49 PM EST Result [facility] POINT OF CARE TEST ENTER/EDIT ORDERABLES Final Result documented in this encounter Visit Diagnoses Diagnosis Well adult health check- Primary Unspecified general medical examination Type 2 diabetes mellitus with obesity (CMS/HCC) ([facility]) Type 2 diabetes mellitus with hyperglycemia, with long-term current use of insulin ([facility]/HCC) Hypertension associated with diabetes (CMS/HCC) ([facility]) Unspecified essential hypertension Arthralgia, unspecified joint documented in this encounter Additional Health Concerns Assessment Noted Time PHQ-9 Depression Total Score: 9 10/30/19 23 2:22 PM EDT documented as of this encounter Care Teams Deck Worker Relationship Specialty Start Date End Date Amalia Pulido FNP [address] [place] [address] PCP - General Family Medicine 01/25/24 documented as of this encounter
[2024-04-19 16:36] LABS: Basophils Percent Auto 0.4 % (0-2); Eosinophils Absolute Auto 0.1 X10*3/uL (0.0-0.4); Eosinophils Percent Auto 1.2 % (0-4); Hematocrit 41.8 % (37.0-47.0); Hemoglobin 13.2 g/dl (12.0-16.0); Imm Gran Abs Auto 0.03 X10*3/uL (0.00-0.03); Imm Gran Pct Auto 0.4 % (0.0-0.4); Lymphocytes Absolute Auto 2.2 X10*3/uL (1.2-4.9); Lymphocytes Percent Auto 26.8 % (20-40); Mean Corpuscular HGB Conc 31.6 g/dl (31.0-35.0); Mean Corpuscular Hemoglobin 27.4 pg (27.0-33.0); Mean Corpuscular Volume 86.9 fL (80.0-98.0); Mean Platelet Volume 13.8 fL (9.4-12.3); Monocytes Absolute Auto 0.5 X10*3/uL (0.1-1.2); Monocytes Percent Auto 6.1 % (2-11); Neutrophils Absolute Auto 5.4 x10*3/uL (2.0-8.3); Neutrophils Percent Auto 65.1 % (45-73); Platelet Count 228 X10*3/uL (160-400); Red Blood Count 4.81 X10*6/uL (4.20-5.50); Red Cell Distribution Width 13.8 % (11.0-16.0); White Blood Count 8.3 X10*3/uL (4.8-10.8)
[2024-04-19 17:03] LABS: Anion Gap 11 (12-20); Blood Urea Nitrogen 13 mg/dL (9-16); Calcium 9.5 mg/dL (8.4-10.2); Carbon Dioxide 27 mmol/L (22-29); Chloride 103 mmol/L (96-108); Cholesterol 141 mg/dL (<200); Estimated Glomerular Filt Rate > 60; Glucose Random 273 mg/dL (60-115); HDL Cholesterol 40 mg/dL (>40); LDL Cholesterol Calculated 79 mg/dL (<100); Potassium 3.7 mmol/L (3.3-5.1); Sodium 137 mmol/L (135-145); Triglycerides 114 mg/dL (<150)
[2024-04-20 04:52] LABS: CT PCR NOT DETECTED (Not Detect.); NG PCR NOT DETECTED (Not Detect.)
[2024-04-20 07:20] LABS: HIV AB/AG Nonreactive (Nonreactive); HIV Num 1 0.07 S/CO (0.00-0.99); ~HepC Num1 0.13 S/CO (0.00-0.79); ~Hepatitis C Antibody Nonreactive (Nonreactive)
[2024-04-20 12:35] LABS: Bacterial Vaginosis PCR POSITIVE (Negative); Candida Group PCR DETECTED (Not Detect); Candida glab krusei PCR NOT DETECTED (Not Detect); Trichomonas vaginalis PCR NOT DETECTED (Not Detect)
== END 2024-04-19 15:46 | disposition home or self-care (01) ==
LOC: HO.HHCL 15:45
PROVIDERS: Visit Provider Nurse Practitioner Family
DX: Z00.00 Encounter for general adult medical examination without abnormal findings (principal); Z11.4 Encounter for screening for human immunodeficiency virus [HIV]; R35.0 Frequency of micturition; E11.69 Type 2 diabetes mellitus with other specified complication; E66.9 Obesity, unspecified
CPT/HCPCS: 36415; 80048; 80061; 81515; 85025; 86803; 87086; 87389; 87491; 87591